=== PATIENT | female | born 1970 | race Caucasian/White ===

== ENCOUNTER 2017-05-12 08:33 | Outpatient (CLI) | payer BC | END 2017-05-12 08:34 | disposition home or self-care (01) | LOC: BICMAMMO 08:33 | PROVIDERS: ATTEND Obstetrics & Gynecology | DX: R92.8 Other abnormal and inconclusive findings on diagnostic imaging of breast (principal); N64.4 Mastodynia | CPT/HCPCS: 77063; 77066; 77067; G0279 ==

== ENCOUNTER 2018-05-07 07:53 | Outpatient (CLI) | payer BC ==
--- NOTE | 2018-05-07 09:39 | BD ---
DEXA Bone Density Scan: Date: 05-07-18 Comparison: None. History: 47-year-old female undergoing assessment for osteoporosis secondary to other [facility] (c [facility]) drug therapy. Lumbar Spine: BMD (g/cm2) L1 0.812 T-Score: -1.6 L2 0.842 T-Score: -1.7 L3 0.860 T-Score: -2.0 L4 0.809 T-Score: -2.3 L1-L4 0.831 T-Score: -2.0 Femoral Neck: 0.726 T-Score: -1.1 Total Femur: 0.917 T-Score: -0.2 The FRAX-risk fracture assessment tool is not reported as the patient is pre-menopausal. Impression: Osteopenia within the lumbar spine and femoral neck, correlating with a moderately increased risk for fracture. POS: LADONNA
== END 2018-05-07 07:54 | disposition home or self-care (01) ==
LOC: BICMAMMO 07:53
PROVIDERS: ATTEND Family Medicine
DX: Z13.820 Encounter for screening for osteoporosis (principal); M85.89 Other specified disorders of bone density and structure, multiple sites; Z79.899 Other long term (current) drug therapy
CPT/HCPCS: 77080

== ENCOUNTER 2018-05-14 08:23 | Outpatient (CLI) | payer BC ==
--- NOTE | 2018-05-14 10:42 | ULT ---
LEFT BREAST ULTRASOUND: Comparison: Ultrasound 05-12-17, mammograms 05-14-18, 05-12-17. History: Complex cyst seen at the 2 o'clock position of the left breast on prior ultrasound and mammo gram. Technique: Multiplanar grayscale and color doppler images were obtained in a left breast ultrasound. FINDINGS: At the 2 o'clock position of the left breast there is a hypoechoic well circumscribed lesion which li micah represents a complex cyst. This has slightly decreased in size measuring 5 mm in greatest dimens ion. There is an anechoic cyst at the 1 o'clock position of the left breast measuring approximately 9 mm in greatest dimension. No suspicious mass or shadowing is seen in the left breast. IMPRESSION: BIRADS category 2 - benign findings. Annual screening mammography is recommended. POS: LADONNA
== END 2018-05-14 08:24 | disposition home or self-care (01) ==
LOC: BICMAMMO 08:23
PROVIDERS: ATTEND Obstetrics & Gynecology
DX: R92.8 Other abnormal and inconclusive findings on diagnostic imaging of breast (principal); Z80.3 Family history of malignant neoplasm of breast
CPT/HCPCS: 77066; G0279

== ENCOUNTER 2018-10-22 15:28 | Outpatient (CLI) | payer BC ==
--- NOTE | 2018-10-22 16:53 | ULT ---
RIGHT LOWER EXTREMITY VENOUS DUPLEX ULTRASOUND INCLUDING COLOR AND SPECTRAL DOPPLER IMAGING: HISTORY: Right calf pain. TECHNIQUE: Exam performed from groin to ankle, including the visualized greater saphenous, common femoral, super ficial femoral, profunda femoral, popliteal, trifurcation, and posterior tibial vein regions. FINDINGS: Phasic flow at all levels with normal compressibility and normal augmentation. no intraluminal throm bus. IMPRESSION: No evidence for deep venous thrombosis. POS: RRE
== END 2018-10-22 15:29 | disposition home or self-care (01) ==
LOC: SCSULT 15:28
PROVIDERS: ATTEND Family Medicine
DX: M79.661 Pain in right lower leg (principal)

== ENCOUNTER 2020-04-15 08:24 | Outpatient (CLI) | payer BC ==
--- NOTE | 2020-04-15 09:29 | MMO ---
Bilateral MAMMO Bilat Screen [facility]. CLINICAL HISTORY: Patient is 49 years old and is seen for screening. The patient has the following family history of breast cancer: paternal grandmother. The patient has no personal history of cancer. VIEWS: The views performed were: bilateral craniocaudal with tomosynthesis; bilateral mediolateral oblique with tomosynthesis; and bilateral exaggerated craniocaudal. FILMS COMPARED: The present examination has been compared to prior imaging studies performed at [facility] on 05/04/2016, 05/09/2016, 05/12/2017 and 05/14/2018. This study has been interpreted with the assistance of computer-aided detection. MAMMOGRAM FINDINGS: The breasts are heterogeneously dense, which could obscure a lesion on mammography. Benign calcifications are noted bilaterally. There are no suspicious masses, suspicious calcifications, or new areas of architectural distortion. IMPRESSION: THERE IS NO MAMMOGRAPHIC EVIDENCE OF MALIGNANCY. A ROUTINE FOLLOW-UP MAMMOGRAM IN 1 YEAR IS RECOMMENDED. THE RESULTS OF THIS EXAM WERE SENT TO THE PATIENT. ACR BI-RADS Category 2 - Benign finding MAMMOGRAPHY NOTE: 1. A negative mammogram report should not delay a biopsy if a dominant of clinically suspicious mass is present. 2. Approximately 10% to 15% of breast cancers are not detected by mammography. 3. Adenosis and dense breasts may obscure an underlying neoplasm. Reported by: HEATHER BOWDEN MD Electonically Signed: [id number]
== END 2020-04-15 08:25 | disposition home or self-care (01) ==
LOC: BICMAMMO 08:24
PROVIDERS: ATTEND Obstetrics & Gynecology
DX: Z12.31 Encounter for screening mammogram for malignant neoplasm of breast (principal); Z80.3 Family history of malignant neoplasm of breast
CPT/HCPCS: 77063; 77067

== ENCOUNTER 2021-04-16 13:12 | Outpatient (CLI) | payer BC | END 2021-04-16 13:13 | disposition home or self-care (01) | LOC: BICMAMMO 13:12 | PROVIDERS: ATTEND Obstetrics & Gynecology | DX: Z12.31 Encounter for screening mammogram for malignant neoplasm of breast (principal); Z80.3 Family history of malignant neoplasm of breast | CPT/HCPCS: 77063; 77067 ==

== ENCOUNTER 2022-05-09 08:44 | Outpatient (CLI) | payer BC, OTHER | END 2022-05-09 08:45 | disposition home or self-care (01) | LOC: BICMAMMO 08:44 | PROVIDERS: ATTEND Obstetrics & Gynecology | DX: Z12.31 Encounter for screening mammogram for malignant neoplasm of breast (principal); Z80.3 Family history of malignant neoplasm of breast | CPT/HCPCS: 77063; 77067 ==

== ENCOUNTER 2023-05-11 13:26 | Outpatient (CLI) | payer BC | END 2023-05-11 13:27 | disposition home or self-care (01) | LOC: BICMAMMO 13:26 | PROVIDERS: ATTEND Obstetrics & Gynecology | DX: Z12.31 Encounter for screening mammogram for malignant neoplasm of breast (principal); Z80.3 Family history of malignant neoplasm of breast | CPT/HCPCS: 77063; 77067 ==